=== PATIENT | male | born 1965 | race Caucasian/White ===

== ENCOUNTER 2020-10-29 16:42 | Emergency (ER) | payer MEDICARE, OTHER ==
[~2020-10-29] VITALS: Ht 172.7 cm; Wt 77.1 kg
[2020-10-29 17:39] LABS: BASOPHILS # (AUTO) 0.1 (0.0-0.1); BASOPHILS % 0.6 % (0.0-1.0); EOSINOPHILS # (AUTO) 0.1 (0.0-0.4); EOSINOPHILS % 1.4 % (0.0-6.0); HEMATOCRIT 51.3 % (38.2-49.6); LYMPHOCYTES # (AUTO) 2.1 (1.0-3.2); LYMPHOCYTES % 22.3 % (18.0-39.1); MEAN CORPUSCULAR HEMOGLOBIN 30.4 pg (28-32); MEAN CORPUSCULAR HGB CONC 33.1 g/dL (31-35); MEAN CORPUSCULAR VOLUME 91.8 fL (81-99); MONOCYTES # (AUTO) 0.8 (0.2-0.8); MONOCYTES % 7.9 % (4.4-11.3); NEUTROPHILS # (AUTO) 6.4 (2.1-6.9); NEUTROPHILS % 67.6 % (38.7-80.0); PLATELET COUNT 186 x10e3/uL (140-360); RED BLOOD COUNT 5.59 x10e6/uL (4.3-5.7); RED CELL DISTRIBUTION WIDTH 12.8 % (11.7-14.4)
[2020-10-29 17:41] LABS: INR 0.91; PROTHROMBIN TIME 12.8 seconds (11.9-14.5)
[2020-10-29 17:50] LABS: ALBUMIN 3.7 g/dL (3.5-5.0); ANION GAP 12.6 mmol/L (8-16); CALCIUM 9.3 mg/dL (8.4-10.2); CREATININE, SERUM 1.11 mg/dL (0.72-1.25); POTASSIUM 3.6 mmol/L (3.5-5.1)
== END 2020-10-29 20:02 | disposition home or self-care (01) ==
LOC: ER 18:36
DX: M79.661 Pain in right lower leg (principal); Z86.718 Personal history of other venous thrombosis and embolism; E78.5 Hyperlipidemia, unspecified
CPT/HCPCS: 36415; 80053; 85025; 85610; 93971; 99284

== ENCOUNTER 2022-03-21 09:37 | Emergency (ER) | payer MEDICARE, OTHER ==
[~2022-03-21] VITALS: Ht 172.7 cm; Wt 81.6 kg
[2022-03-21 11:48] LABS: BASOPHILS # (AUTO) 0.1 (0.0-0.1); BASOPHILS % 0.9 % (0.0-1.0); EOSINOPHILS # (AUTO) 0.3 (0.0-0.4); EOSINOPHILS % 5.1 % (0.0-6.0); HEMATOCRIT 51.8 % (38.2-49.6); HEMOGLOBIN 16.6 g/dL (14.0-18.0); LYMPHOCYTES # (AUTO) 1.4 (1.0-3.2); LYMPHOCYTES % 22.1 % (18.0-39.1); MEAN CORPUSCULAR HEMOGLOBIN 31.2 pg (28-32); MEAN CORPUSCULAR VOLUME 97.4 fL (81-99); MONOCYTES # (AUTO) 0.6 (0.2-0.8); MONOCYTES % 8.8 % (4.4-11.3); NEUTROPHILS # (AUTO) 4.1 (2.1-6.9); NEUTROPHILS % 62.9 % (38.7-80.0); PLATELET COUNT 173 x10e3/uL (140-360); RED BLOOD COUNT 5.32 x10e6/uL (4.3-5.7); RED CELL DISTRIBUTION WIDTH 12.6 % (11.7-14.4)
[2022-03-21 12:27] LABS: ALBUMIN 4.1 g/dL (3.5-5.0); ALBUMIN/GLOBULIN RATIO 1.1 (0.8-2.0); ANION GAP 14.2 mmol/L (8-16); CALCIUM 8.9 mg/dL (8.4-10.2); CREATININE, SERUM 1.15 mg/dL (0.72-1.25); MAGNESIUM 1.9 MG/DL (1.3-2.1); POTASSIUM 4.2 mmol/L (3.5-5.1)
[2022-03-21 12:35] LABS: CREATINE KINASE MB 2.7 ng/mL (0-5.0)
[2022-03-21] MEDS ORDERED: VENTOLIN HFA18 GM INH (13:20)
[2022-03-21] MEDS ORDERED: DOXYCYCLINE HY100 MG PO (13:20)
[2022-03-21] MEDS ORDERED: PREDNISONE20 MG PO (13:20)
[2022-03-21 13:52] VITALS: BP 117/88
== END 2022-03-21 13:30 | disposition home or self-care (01) ==
LOC: ER 09:46
DX: J20.9 Acute bronchitis, unspecified (principal); J84.112 Idiopathic pulmonary fibrosis; E78.5 Hyperlipidemia, unspecified; Z87.891 Personal history of nicotine dependence; Z20.822 Contact with and (suspected) exposure to COVID-19
CPT/HCPCS: 36415; 71045; 80053; 82550; 82553; 83735; 83880; 84484; 85025; 87040; 99284; U0002